=== PATIENT | male | born 2000 | race Caucasian/White ===

== ENCOUNTER → 2024-09-20 | Outpatient (CLI) | payer BC ==
--- NOTE | 2024-09-20 12:05 | US ---
EXAMINATION TYPE: US liver DATE OF EXAM: 09/20/2024 COMPARISON: NONE CLINICAL INDICATION: Male, 24 years old with history of E89.6 OTHER DISORDERS OF BILIRUBIN; TECHNIQUE: Grayscale and color Doppler imaging of the right upper quadrant was performed. FINDINGS: EXAM MEASUREMENTS: Liver Length: 14.0 cm Gallbladder Wall: 0.2 cm CBD: 0.3 cm Right Kidney: 9.3 x 4.0 x 5.1 cm Pancreas: obscured by overlying midline bowel gas Liver: 0.9cm hyperechoic area right lobe Gallbladder: wnl Evidence for sonographic Kerr's sign: no CBD: wnl Right Kidney: wnl IMPRESSION: 9 mm hyperechoic lesion within the right lobe liver most likely related to hemangioma. Recommend foll ow-up CT scan for confirmation. [facility], , 09/20/2024 12:03 PM
== END | disposition home or self-care (01) ==
LOC: RADUSWWP 07:05
PROVIDERS: ATTEND Family Medicine
CPT/HCPCS: 76705